=== PATIENT | female | born 1945 | race Caucasian/White ===

== ENCOUNTER 2017-10-04 10:54 | Outpatient (CLI) | payer OTHER ==
--- NOTE | 2017-10-04 11:33 | SJPRAD ---
RIGHT HIP 2 VIEWS: HISTORY: Right hip pain. FINDINGS: There are arthritic changes of the hip. There is some moderate joint space narrowing with minimal sp ur formation. The bones appear somewhat demineralized. There is some calcification near the gluteus minimus and medius tendon insertions. IMPRESSION: Moderate arthritic changes of the hip with moderate joint space narrowing. POS: JONI
== END 2017-10-04 10:55 | disposition home or self-care (01) ==
LOC: MWLC RAD 10:54
PROVIDERS: ATTEND Family Medicine
DX: M25.551 Pain in right hip (principal)